=== PATIENT | female | born 1990 | race Caucasian/White ===

== ENCOUNTER 2018-08-22 16:06 | Emergency (ER) | payer OTHER, MEDICAID, SELFPAY ==
[2018-08-22 16:25] VITALS: BP 114/76; PULSE 88; RESP 16; TEMP 36.1; O2SAT 97
--- NOTE | 2018-08-22 16:51 | DI.RAD.S_ITS ---
PROCEDURE: XR WRIST RT MIN 3V INDICATIONS: injury last week, decreased rom TECHNIQUE: 4 views of the wrist were acquired. COMPARISON: [facility], CR, XR HAND RT MIN 3V, 08/22/2018, 16:56. FINDINGS: Bones: No fractures or dislocations. No suspicious bony lesions. Scaphoid view: No navicular fractures are seen. Soft tissues: No suspicious soft tissue calcifications. IMPRESSION: No displaced fractures can be seen by plain film. Dictated by: Eyal Morrell M.D. on 08/22/2018 at 16:15 Approved by: Eyal Morrell M.D. on 08/22/2018 at 16:16
--- NOTE | 2018-08-22 16:51 | DI.RAD.S_ITS ---
PROCEDURE: XR HAND RT MIN 3V INDICATIONS: pain 1 week post injury TECHNIQUE: 3 views of the hand(s) acquired. COMPARISON: [facility], CR, XR WRIST RT MIN 3V, 08/22/2018, 16:56. FINDINGS: Bones: No fractures or dislocations. Carpal bones are normally aligned. No suspicious bony lesions. Soft tissues: No suspicious soft tissue calcifications. IMPRESSION: Unremarkable plain film study, without displaced fractures identified. Dictated by: Eyal Morrell M.D. on 08/22/2018 at 16:16 Approved by: Eyal Morrell M.D. on 08/22/2018 at 16:17
[2018-08-22 19:11] VITALS: BP 119/70; PULSE 80; RESP 18; O2SAT 96
--- NOTE | 2018-08-22 20:13 | ED.UPPEXIN ---
HPI - Extremity Injury (Upper) <YOCASTA Larry - Last Filed: 08/22/18 20:21> General Chief Complaint: Extremity Injury, Upper Stated Complaint: RIGHT WRIST INJURY PAIN SWELLING Time Seen by Provider: 08/22/18 16:47 Source: patient and family Mode of arrival: ambulatory Limitations: no limitations History of Present Illness HPI narrative: The patient is a 28-year-old female nonsmoker who presents with a chief complaint of right wrist and hand pain. She states that it has been hurting for at least a week after an injury, where she fell. She was using a Velcro brace. She lost the Velcro brace. She has taken Tylenol a few times. She has not applied ice or taken ibuprofen. She denies any numbness or tingling. She has not hurt this wrist or hand before. Related Data Allergies Allergy/AdvReac Type Severity Reaction Status Date / Time hydrocodone Allergy Anaphylaxis Verified 08/22/18 16:34 Review of Systems <YOCASTA Larry - Last Filed: 08/22/18 20:21> Review of Systems GENERAL: Denies chills, fatigue, malaise, fever, sweats. HEENT: Denies sinus pain, ear pain, sore throat, difficulty swallowing, dizziness. RESPIRATORY: Denies dyspnea, cough, wheezing, hemoptysis, sputum. CARDIOVASCULAR: Denies chest pain, palpitations, orthopnea, edema, GASTROINTESTINAL: Denies nausea, vomiting, abdominal pain, diarrhea, constipation, melena. : Denies dysuria, frequency, incontinence, hematuria, urinary retention. MUSCULOSKELETAL: denies weakness, joint pain, or bony pain SKIN: See HPI NEUROLOGIC: Denies weakness, headache, numbness, change in speech, confusion, seizures, incoordination. PSYCHIATRIC: No concerning psychosocial issues. 12 point review of systems is negative except for those stated above PFSH <YOCASTA Larry - Last Filed: 08/22/18 20:21> Social History Smoking Status: Never smoker Social History Smoking Status: Never smoker Exam <YOCASTA Larry - Last Filed: 08/22/18 20:21> Narrative Exam Narrative: GENERAL: This is a well-nourished, well-developed patient, in no acute distress HEAD: Atraumatic. Normocephalic. No temporal or scalp tenderness. EYES: Pupils equal round and reactive. Extraocular motions intact. No scleral icterus. No injection or drainage. ENT: Nose without bleeding, purulent drainage or septal hematoma. Throat without erythema, tonsillar hypertrophy or exudate. Uvula midline. Airway patent. NECK: Trachea midline. No JVD or lymphadenopathy. Supple, nontender, no meningeal signs. CARDIOVASCULAR: Regular rate and rhythm EXTREMITIES: Pain to palpation noted right wrist and hand. Pain to snuffbox palpation on right side. The patient does not want to pronate supinate right forearm. Positive radial pulse on right side. BACK: Nontender without deformity or crepitance. No flank tenderness. NEURO: AOx3. SKIN: No rash or erythema. No erythema ecchymosis laceration or abrasion noted right hand or wrist. Initial Vital Signs Initial Vital Signs: Vital Signs Temperature 97.0 F L 08/22/18 16:25 Pulse Rate 88 08/22/18 16:25 Respiratory Rate 16 08/22/18 16:25 Blood Pressure 114/76 08/22/18 16:25 Pulse Oximetry 97 08/22/18 16:25 <Catherine Peck DO - Last Filed: 08/24/18 08:09> Initial Vital Signs Initial Vital Signs: Vital Signs Temperature 97.0 F L 08/22/18 16:25 Pulse Rate 88 08/22/18 16:25 Respiratory Rate 16 08/22/18 16:25 Blood Pressure 114/76 08/22/18 16:25 Pulse Oximetry 97 08/22/18 16:25 Procedures <YOCASTA Larry - Last Filed: 08/22/18 20:21> Orthopedic Splinting/Casting Injury #1: Side: right Upper Extremity Injury Location: wrist Upper Extremity Immobilizer: thumb spica and Johnnie wrap Post splinting neuro exam: intact Post splinting vascular exam: intact Placed by: Nursing Course <YOCASTA Larry - Last Filed: 08/22/18 20:21> Orders Ordered: ED Orders 08/22/18 16:51 XR hand RT min 3V Stat XR wrist RT min 3V Stat Vital Signs - 8 hr 08/22/18 16:25 08/22/18 19:11 Temperature 97.0 F L Pulse Rate 88 80 Respiratory Rate 16 18 Blood Pressure 114/76 119/70 Pulse Oximetry 97 96 <Catherine Peck DO - Last Filed: 08/24/18 08:09> Orders Ordered: ED Orders 08/22/18 16:51 XR hand RT min 3V Stat XR wrist RT min 3V Stat Vital Signs - 8 hr 08/22/18 16:25 08/22/18 19:11 Temperature 97.0 F L Pulse Rate 88 80 Respiratory Rate 16 18 Blood Pressure 114/76 119/70 Pulse Oximetry 97 96 MDM - Extremity Injury (Upper) <YOCASTA Larry - Last Filed: 08/22/18 20:21> Imaging Data Wrist x-ray: Radiologist's impression: [address] [address] XRay Report Signed Patient: OttoJennifer CMR#: [id number] : 1990Acct:[id number] Age/Sex: 28 / FDate of Service: 08/22/18 Loc: ED Accession Number: [id number] Procedure: XR hand RT min 3V Ordering Provider: Catherine Parra PROCEDURE: XR HAND RT MIN 3V INDICATIONS: pain 1 week post injury TECHNIQUE: 3 views of the hand(s) acquired. COMPARISON: [facility], , XR WRIST RT MIN 3V, 08/22/2018, 16:56. FINDINGS: Bones: No fractures or dislocations. Carpal bones are normally aligned. No suspicious bony lesions. Soft tissues: No suspicious soft tissue calcifications. IMPRESSION: Unremarkable plain film study, without displaced fractures identified. Dictated by: Eyal Morrell M.D. on 08/22/2018 at 16:16 Approved by: Eyal Morrell M.D. on 08/22/2018 at 16:17 hand x-ray: Radiologist's impression: [facility] DATE TYPE STATUS AUTHOR Hx 08/22/18 16:51 Eyal Morrell 08/22/18 16:51 Eyal Morrell Kelsee C 28, F03/ [facility], ED.LOC - Main ED Extremity Injury, Upper Search Chart No Data to Display Anaphylaxis ONSET Today 19:11 Jennifer Menjivar 28 F [address] [address] XRay Report Signed Patient: Jennifer Menjivar CMR#: [id number] : 1990Acct:[id number] Age/Sex: 28 / FDate of Service: 08/22/18 Loc: ED Accession Number: [id number] Procedure: XR wrist RT min 3V Ordering Provider: Catherine Parra-NEELIMA PROCEDURE: XR WRIST RT MIN 3V INDICATIONS: injury last week, decreased rom TECHNIQUE: 4 views of the wrist were acquired. COMPARISON: [facility], , XR HAND RT MIN 3V, 08/22/2018, 16:56. FINDINGS: Bones: No fractures or dislocations. No suspicious bony lesions. Scaphoid view: No navicular fractures are seen. Soft tissues: No suspicious soft tissue calcifications. IMPRESSION: No displaced fractures can be seen by plain film. Dictated by: Eyal Morrell M.D. on 08/22/2018 at 16:15 Approved by: Eyal Morrell M.D. on 08/22/2018 at 16:16 [facility] Narrative Medical decision making narrative: The patient is a 28-year-old female who presents with chief complaint of right hand and wrist pain. She has negative x-rays, but has pain on snuffbox palpation. She was placed in a thumb spica splint. I discussed at length follow up with Orthopedics as well as rest ice compression elevation as well as [id number] pain medications as needed and able. Discussed coming back to the emergency department for any acute concerns, such as decreased circulation to the thumb and fingers. Patient has no questions or concerns upon discharge. Discharge Plan Departure Patient Disposition: Home Clinical Impression: Acute wrist pain Qualifiers: Laterality: right Qualified Code(s): M25.531 - Pain in right wrist Discharge Date/Time: 08/22/18 18:55 Interventions: ED Discharge Assessment Last Done: 08/22/18 19:11 Instructions: How To Perform RICE (Rest, Ice, Compress, Elevate), DI for Wrist Pain Activity Restrictions/Additional Instructions: Your wrist pain today raises concern for fracture. Please use [id number] medications as. Needed. Please use rest ice. Compression elevation. Please come back to the emergency department for any acute concerns such as decreased circulation to her thumb or fingers. Please follow up with Orthopedics as well as her primary care provider. Referrals: [facility] [Provider Group] Stand Alone Forms: Work Release Note <Catherine Peck DO - Last Filed: 08/24/18 08:09> Cosign ED Attending Cosignature Attestation: I was immediately available in the department for consultation. This documentation has been reviewed and I agree with assessment and plan. Supervised by Catherine Peck DO
--- NOTE | 2018-08-22 20:21 | ED_ITS ---
HPI - Extremity Injury (Upper) <YOCASTA Larry - Last Filed: 08/22/18 20:21> General Chief Complaint: Extremity Injury, Upper Stated Complaint: RIGHT WRIST INJURY PAIN SWELLING Time Seen by Provider: 08/22/18 16:47 Source: patient and family Mode of arrival: ambulatory Limitations: no limitations History of Present Illness HPI narrative: The patient is a 28-year-old female nonsmoker who presents with a chief complaint of right wrist and hand pain. She states that it has been hurting for at least a week after an injury, where she fell. She was using a Velcro brace. She lost the Velcro brace. She has taken Tylenol a few times. She has not applied ice or taken ibuprofen. She denies any numbness or tingling. She has not hurt this wrist or hand before. Related Data Allergies Allergy/AdvReac Type Severity Reaction Status Date / Time hydrocodone Allergy Anaphylaxis Verified 08/22/18 16:34 Review of Systems <YOCASTA Larry - Last Filed: 08/22/18 20:21> Review of Systems GENERAL: Denies chills, fatigue, malaise, fever, sweats. HEENT: Denies sinus pain, ear pain, sore throat, difficulty swallowing, dizziness. RESPIRATORY: Denies dyspnea, cough, wheezing, hemoptysis, sputum. CARDIOVASCULAR: Denies chest pain, palpitations, orthopnea, edema, GASTROINTESTINAL: Denies nausea, vomiting, abdominal pain, diarrhea, constipation, melena. : Denies dysuria, frequency, incontinence, hematuria, urinary retention. MUSCULOSKELETAL: denies weakness, joint pain, or bony pain SKIN: See HPI NEUROLOGIC: Denies weakness, headache, numbness, change in speech, confusion, seizures, incoordination. PSYCHIATRIC: No concerning psychosocial issues. 12 point review of systems is negative except for those stated above PFSH <YOCASTA Larry - Last Filed: 08/22/18 20:21> Social History Smoking Status: Never smoker Social History Smoking Status: Never smoker Exam <YOCASTA Larry - Last Filed: 08/22/18 20:21> Narrative Exam Narrative: GENERAL: This is a well-nourished, well-developed patient, in no acute distress HEAD: Atraumatic. Normocephalic. No temporal or scalp tenderness. EYES: Pupils equal round and reactive. Extraocular motions intact. No scleral icterus. No injection or drainage. ENT: Nose without bleeding, purulent drainage or septal hematoma. Throat without erythema, tonsillar hypertrophy or exudate. Uvula midline. Airway patent. NECK: Trachea midline. No JVD or lymphadenopathy. Supple, nontender, no meningeal signs. CARDIOVASCULAR: Regular rate and rhythm EXTREMITIES: Pain to palpation noted right wrist and hand. Pain to snuffbox palpation on right side. The patient does not want to pronate supinate right forearm. Positive radial pulse on right side. BACK: Nontender without deformity or crepitance. No flank tenderness. NEURO: AOx3. SKIN: No rash or erythema. No erythema ecchymosis laceration or abrasion noted right hand or wrist. Initial Vital Signs Initial Vital Signs: Vital Signs Temperature 97.0 F L 08/22/18 16:25 Pulse Rate 88 08/22/18 16:25 Respiratory Rate 16 08/22/18 16:25 Blood Pressure 114/76 08/22/18 16:25 Pulse Oximetry 97 08/22/18 16:25 <Catherine Peck DO - Last Filed: 08/24/18 08:09> Initial Vital Signs Initial Vital Signs: Vital Signs Temperature 97.0 F L 08/22/18 16:25 Pulse Rate 88 08/22/18 16:25 Respiratory Rate 16 08/22/18 16:25 Blood Pressure 114/76 08/22/18 16:25 Pulse Oximetry 97 08/22/18 16:25 Procedures <YOCASTA Larry - Last Filed: 08/22/18 20:21> Orthopedic Splinting/Casting Injury #1: Side: right Upper Extremity Injury Location: wrist Upper Extremity Immobilizer: thumb spica and Johnnie wrap Post splinting neuro exam: intact Post splinting vascular exam: intact Placed by: Nursing Course <YOCASTA Larry - Last Filed: 08/22/18 20:21> Orders Ordered: ED Orders 08/22/18 16:51 XR hand RT min 3V Stat XR wrist RT min 3V Stat Vital Signs - 8 hr 08/22/18 16:25 08/22/18 19:11 Temperature 97.0 F L Pulse Rate 88 80 Respiratory Rate 16 18 Blood Pressure 114/76 119/70 Pulse Oximetry 97 96 <Catherine Peck DO - Last Filed: 08/24/18 08:09> Orders Ordered: ED Orders 08/22/18 16:51 XR hand RT min 3V Stat XR wrist RT min 3V Stat Vital Signs - 8 hr 08/22/18 16:25 08/22/18 19:11 Temperature 97.0 F L Pulse Rate 88 80 Respiratory Rate 16 18 Blood Pressure 114/76 119/70 Pulse Oximetry 97 96 MDM - Extremity Injury (Upper) <YOCASTA Larry - Last Filed: 08/22/18 20:21> Imaging Data Wrist x-ray: Radiologist's impression: [address] [address] XRay Report Signed Patient: OttoJennifer CMR#: [id number] : 1990Acct:[id number] Age/Sex: 28 / FDate of Service: 08/22/18 Loc: ED Accession Number: [id number] Procedure: XR hand RT min 3V Ordering Provider: Catherine Parra PROCEDURE: XR HAND RT MIN 3V INDICATIONS: pain 1 week post injury TECHNIQUE: 3 views of the hand(s) acquired. COMPARISON: [facility], , XR WRIST RT MIN 3V, 08/22/2018, 16:56. FINDINGS: Bones: No fractures or dislocations. Carpal bones are normally aligned. No suspicious bony lesions. Soft tissues: No suspicious soft tissue calcifications. IMPRESSION: Unremarkable plain film study, without displaced fractures identified. Dictated by: Eyal Morrell M.D. on 08/22/2018 at 16:16 Approved by: Eyal Morrell M.D. on 08/22/2018 at 16:17 hand x-ray: Radiologist's impression: [facility] DATE TYPE STATUS AUTHOR Hx 08/22/18 16:51 Eyal Morrell 08/22/18 16:51 Eyal Morrell Kelsee C 28, F03/ [facility] ER, ED.LOC - Main ED Extremity Injury, Upper Search Chart No Data to Display Anaphylaxis ONSET Today 19:11 Jennifer Menjivar 28 F [address] [address] XRay Report Signed Patient: Jennifer Menjivar CMR#: [id number] : 1990Acct:[id number] Age/Sex: 28 / FDate of Service: 08/22/18 Loc: ED Accession Number: [id number] Procedure: XR wrist RT min 3V Ordering Provider: Catherine Parra-NEELIMA PROCEDURE: XR WRIST RT MIN 3V INDICATIONS: injury last week, decreased rom TECHNIQUE: 4 views of the wrist were acquired. COMPARISON: [facility], , XR HAND RT MIN 3V, 08/22/2018, 16:56. FINDINGS: Bones: No fractures or dislocations. No suspicious bony lesions. Scaphoid view: No navicular fractures are seen. Soft tissues: No suspicious soft tissue calcifications. IMPRESSION: No displaced fractures can be seen by plain film. Dictated by: Eyal Morrell M.D. on 08/22/2018 at 16:15 Approved by: Eyal Morrell M.D. on 08/22/2018 at 16:16 [facility] Narrative Medical decision making narrative: The patient is a 28-year-old female who presents with chief complaint of right hand and wrist pain. She has negative x- rays, but has pain on snuffbox palpation. She was placed in a thumb spica splint. I discussed at length follow up with Orthopedics as well as rest ice compression elevation as well as [id number] pain medications as needed and able. Discussed coming back to the emergency department for any acute concerns, such as decreased circulation to the thumb and fingers. Patient has no questions or concerns upon discharge. Discharge Plan Departure Patient Disposition: Home Clinical Impression: Acute wrist pain Qualifiers: Laterality: right Qualified Code(s): M25.531 - Pain in right wrist Discharge Date/Time: 08/22/18 18:55 Interventions: ED Discharge Assessment Last Done: 08/22/18 19:11 Instructions: How To Perform RICE (Rest, Ice, Compress, Elevate), DI for Wrist Pain Activity Restrictions/Additional Instructions: Your wrist pain today raises concern for fracture. Please use [id number] medications as. Needed. Please use rest ice. Compression elevation. Please come back to the emergency department for any acute concerns such as decreased circulation to her thumb or fingers. Please follow up with Orthopedics as well as her primary care provider. Referrals: [facility] [Provider Group] Stand Alone Forms: Work Release Note <Catherine Peck DO - Last Filed: 08/24/18 08:09> Cosign ED Attending Cosignature Attestation: I was immediately available in the department for consultation. This documentation has been reviewed and I agree with assessment and plan. Supervised by Catherine Peck DO
== END 2018-08-22 18:55 | disposition home or self-care (01) ==
PROVIDERS: Emergency Provider Nurse Practitioner Family
DX: M25.531 Pain in right wrist (principal)
CPT/HCPCS: 29125; 73110; 73130; 99282; 99283